=== PATIENT | female | born 1950 | race Caucasian/White ===

== ENCOUNTER 2018-02-28 19:53 | Emergency (ER) | payer MEDICARE, OTHER ==
[2018-02-28 20:25] VITALS: TEMP 97.6
[2018-02-28 21:31] VITALS: RESP 18; O2SAT 98
[2018-02-28 21:35] VITALS: BP 139/88; PULSE 78
== END 2018-02-28 21:14 | disposition home or self-care (01) | DRG 605 ==
LOC: ED 19:53
DX: S70.02XA Contusion of left hip, initial encounter (principal)
CPT/HCPCS: 73501; 99282; 99283